=== PATIENT | male | born 1945 | race Caucasian/White ===

== ENCOUNTER 2016-12-11 13:33 | Emergency (ER) | payer OTHER ==
[~2016-12-11] VITALS: Ht 182.9 cm; Wt 96.4 kg
[2016-12-11 14:44] LABS: GLUCOSE, URINE (UA) NEGATIVE (NEGATIVE); KETONES,URINE TRACE mg/dL (NEGATIVE); LEUKOCYTE ESTERASE ,URINE SMALL (NEGATIVE); OCCULT BLOOD,URINE TRACE (NEGATIVE); PROTEIN,URINE SEE CONFIRM (NEGATIVE)
[2016-12-11 14:45] LABS: ADD UA MICROSCOPIC YES; APPEARANCE,URINE HAZY (CLEAR)
[2016-12-11 14:50] LABS: BASOPHILS % (AUTO) 0.7 % (0.0-2.0); EOSINOPHILS % (AUTO) 2.7 % (1.0-6.0); HEMATOCRIT 40.7 % (41-53); HEMOGLOBIN 13.9 g/dL (13.5-17.5); LYMPHOCYTES # (AUTO) 1.4 K/uL (1.0-4.8); LYMPHOCYTES % (AUTO) 20.4 % (22.0-44.0); MEAN CORPUSCULAR HEMOGLOBIN 32.1 pg (26.0-34.0); MEAN CORPUSCULAR HGB CONC 34.1 G/dL (31.0-37.0); MEAN CORPUSCULAR VOLUME 94 fL (80-100); MONOCYTES # (AUTO) 0.5 K/uL (0.1-1.0); MONOCYTES % (AUTO) 8.1 % (2.0-9.0); NEUTROPHILS # (AUTO) 4.6 K/uL (1.8-7.7); NEUTROPHILS % (AUTO) 68.1 % (40.0-70.0); PLATELET COUNT (AUTO) 207 K/uL (150-450); RED BLOOD CELL COUNT(AUTO) 4.33 MIL/uL (4.50-5.90); RED CELL DISTRIBUTION WIDTH 13.3 % (11.5-14.5); WHITE BLOOD COUNT (AUTO) 6.7 K/uL (4.5-11.0)
[2016-12-11 15:01] LABS: CALCIUM, TOTAL 8.9 mg/dL (8.8-10.5); CREATININE 1.75 mg/dL (0.60-1.30); POTASSIUM 3.6 mmol/L (3.5-5.1)
[2016-12-11] MEDS ORDERED: IPRNEB IH (15:02)
[2016-12-11] MEDS ORDERED: [UNRECOGNIZED DRUG - CODE] PO (15:02)
[2016-12-11] MEDS ORDERED: DOXA2TAB PO ×2 (15:02→15:08)
[2016-12-11] MEDS ORDERED: ENAL10 PO (15:02)
[2016-12-11] MEDS ORDERED: AMLO-512 PO ×2 (15:02→15:06)
[2016-12-11] MEDS ORDERED: LEVAHFA IH (15:04)
[2016-12-11] MEDS ORDERED: MOME13HF2 IH (15:04)
[2016-12-11] MEDS ORDERED: BENZ1LOZ68 PO (15:06)
[2016-12-11] MEDS ORDERED: AZIT250T6 PO (15:06)
[2016-12-11] MEDS ORDERED: OMEP20 PO (15:06)
[2016-12-11 15:10] LABS: INR 1.1 (0.9-1.1); PROTHROMBIN TIME 11.4 SEC (9.4-11.6)
[2016-12-11 15:14] LABS: SULFOSALICYLIC ACID,URINE 2+ (Negative)
[2016-12-11 15:21] LABS: SQUAMOUS EPITHELIAL CELL,UR Few /LPF (None Seen)
[2016-12-11 15:23] LABS: ALBUMIN 3.8 g/dL (3.4-5.0); BILIRUBIN,TOTAL 0.5 mg/dL (0.1-1.0); CREATINE KINASE MB 11.7 ng/mL (0-5)
[2016-12-11] MEDS ORDERED: SODIUM CHLORIDE 0.9% 1,000 ML IV ONE (15:45)
[2016-12-11 17:58] LABS: CREATINE KINASE MB 9.5 ng/mL (0-5)
[2016-12-11 20:33] VITALS: BP 119/76
== END 2016-12-11 20:33 | disposition home or self-care (01) ==
LOC: EEVIPCON 13:35 → EMS 13:35
DX: N39.0 Urinary tract infection, site not specified (principal); J44.9 Chronic obstructive pulmonary disease, unspecified; I10 Essential (primary) hypertension; F17.210 Nicotine dependence, cigarettes, uncomplicated
CPT/HCPCS: 36415; 70450; 71010; 80053; 80307; 81001; 81002; 82550; 82553; 83880; 84484; 85025; 85610; 85730; 87086; 93005; 96360; 96361; 99285; J7030